=== PATIENT | female | born 1980 | race Caucasian/White ===

== ENCOUNTER → 2021-10-22 | Outpatient (CLI) | payer OTHER ==
--- NOTE | 2021-10-22 08:19 | RAD ---
EXAM: ULTRASOUND PELVIS INDICATION: History of ovarian cyst. COMPARISON: None available. FINDINGS: The uterus measures 8.8 x 4.7 x 3.5 cm. The endometrium is 1 cm in thickness. The right ovary measure s 3.3 x 1.6 x 1.2 cm. The left ovary measures 3.2 x 1.7 x 1.8 cm. Blood flow identified in the left o varies. Small subcentimeter follicles right and left ovaries.. IMPRESSION: Small bilateral ovarian follicles.. Otherwise unremarkable exam. Electronically signed by: Weston Sweet MD (10/22/2021 8:16 AM) [id number]
== END ==
LOC: US 07:21
PROVIDERS: ATTEND Physician Assistant
DX: N83.209 Unspecified ovarian cyst, unspecified side (principal)
CPT/HCPCS: 76856